=== PATIENT | female | born 1950 | race Caucasian/White ===

== ENCOUNTER 2021-03-28 16:46 | Emergency (ER) | payer MEDICARE, OTHER ==
[~2021-03-28] VITALS: Ht 167.6 cm; Wt 74.8 kg
[2021-03-28] MEDS ORDERED: AMLODIPINE BESYL5 MG PO (18:41)
[2021-03-28] MEDS ORDERED: METOPROLOL SUC200 MG PO (18:41)
[2021-03-28] MEDS ORDERED: ATORVASTATIN CA10 MG PO (18:41)
[2021-03-28] MEDS ORDERED: ENALAPRIL MALEA20 MG PO (18:42)
[2021-03-28] MEDS ORDERED: DOXYCYCLINE HY100 MG PO (20:24)
--- NOTE | 2021-03-29 18:14 | EKG ---
[facility] [address] [facility] [place] [address] Signed Normal sinus rhythm Nonspecific ST and T wave abnormality Abnormal ECG No previous ECGs available Confirmed by RADHA OLSON MD ([id number] on 03/29/2021 6:14:00 PM Electronically Signed By: RADHA OLSON MD 03/29/211813 PATIENT NAME: SHANON MCCLELLAN Electrocardiogram DATE OF : 46 PHYSICIAN: RADHA OLSON MD REPORT #: [id number] REPORT IS CONFIDENTIAL AND NOT TO BE RELEASED WITHOUT AUTHORIZATION
== END 2021-03-28 20:49 | disposition home or self-care (01) ==
LOC: ED 16:46
DX: J20.9 Acute bronchitis, unspecified (principal); F17.200 Nicotine dependence, unspecified, uncomplicated; I10 Essential (primary) hypertension; Z20.822 Contact with and (suspected) exposure to COVID-19; Z79.899 Other long term (current) drug therapy
CPT/HCPCS: 71045; 80053; 83735; 83880; 84484; 85025; 93005; 93010; 94640; 94644; 99284; C9803; U0003